=== PATIENT | male | born 1945 | race Caucasian/White ===

== ENCOUNTER 2019-09-13 09:21 | Inpatient (IN) ==
--- NOTE | 2019-09-13 09:38 | PROVIDER DOCUMENTATION ---
HPI-Neurological Disorder - General Stated Complaint: SYNCOPE Time Seen by Provider: 09/13/19 09:24 Source: EMS, other (sitter from [facility]) Unable to obtain history due to:: altered Allergies/Adverse Reactions: Patient Allergies Allergy/AdvReac Type Severity Reaction Status Date / Time Phenothiazines Allergy Unknown Verified 09/13/19 09:50 Home Medications: Home Medication List Medication Instructions Recorded Confirmed Last Taken Type Alendronate [Fosamax] 1 tab PO DAILY 09/13/19 09/13/19 09/13/19 History Amlodipine [Norvasc] 1 tab PO DAILY 09/13/19 09/13/19 09/13/19 History Aspirin [Aspir-Low] 1 tab PO DAILY 09/13/19 09/13/19 09/13/19 History Calcium Carbonate/Vitamin D3 1 cap PO DAILY 09/13/19 09/13/19 09/13/19 History [Calcium 600-Vit D3 500 Softgel] Docusate Sodium [Colace] 2 cap PO DAILY 09/13/19 09/13/19 09/13/19 History Escitalopram Oxalate [Lexapro] 1 tab PO DAILY 09/13/19 09/13/19 09/13/19 History Isosorbide Mononitrate [Isosorbide 1 tab PO DAILY 09/13/19 09/13/19 09/13/19 History Mononitrate ER] Lactulose [Generlac] 1 dose PO BID 09/13/19 09/13/19 09/13/19 History Losartan Potassium 1 tab PO DAILY 09/13/19 09/13/19 09/13/19 History Omeprazole [Prilosec] 1 cap PO BID 09/13/19 09/13/19 09/13/19 History Propranolol [Inderal] 10 mg PO DAILY 09/13/19 09/13/19 09/13/19 History Quetiapine [Seroquel] 0.5 tab PO QHS 09/13/19 09/13/19 09/12/19 History SIMVAstatin [Zocor] 1 tab PO QHS 09/13/19 09/13/19 09/12/19 History Tamsulosin [Flomax] 1 tab PO DAILY 09/13/19 09/13/19 09/13/19 History Trazodone [Desyrel] 1 tab PO QHS 09/13/19 09/13/19 09/12/19 History Zolpidem [Ambien] 0.5 tab PO Q 09/13/19 09/13/19 09/12/19 History - History of Present Illness-Neuro Nature of Presenting Problem: pt is nonverbal, from [facility]. Was using toilet as a seat, was getting a haircut, when eyes rolled back, fell forward. Hit head twice. She says he has n ever dfone this before. He did have a fever last night, was given tylenol, fever has not returned. No cough, no N/V/change BM. BAck to NL self by EMS arrival Onset/Duration: reports: abrupt Timing: reports: gone now Review of Systems - Adult - REVIEW OF SYSTEMS - ADULT Constitutional: reports: see HPI Eyes: reports: no symptoms reported Ears, Nose, Mouth & Throat: reports: no symptoms reported Cardiovascular: reports: no symptoms reported Respiratory: reports: no symptoms reported Gastrointestinal: reports: no symptoms reported Genitourinary: reports: no symptoms reported Musculoskeletal: reports: no symptoms reported Integumentary: reports: no symptoms reported Neurological: reports: see HPI Psychiatric: reports: no symptoms reported Endocrine: reports: no symptoms reported Hematologic/Lymphatic: reports: no symptoms reported Allergic/Immunologic: reports: no symptoms reported Past History - Adult - PAST MEDICAL HISTORY-ADULT Review of Records: reports: Medications Reviewed Physical Exam- Neurological - Physical Exam-Neuro Initial Vital Signs Reviewed: Yes General Appearance: appears well, other (awake, looking around. Obeys commands, non verbal) Eye Exam: bilateral eye: normal inspection, PERRL, EOMI HENMT: normocephalic/atraumatic, moist mucous membranes, normal ENT inspection Head Injury: other (4 cm que hematoma to R occiput) Neck: full range of motion, supple, normal inspection Respiratory: lungs clear, normal breath sounds, no pleuratic chest pain, no respiratory distress, no accessory muscle use Cardiovascular: regular rate, rhythm, no edema, no gallop Abdominal Exam: non tender, soft Peripheral Pulses: radial (R): 2+ Extremity: non-tender, normal inspection, no pedal edema trench pipe layer Exam: PERRL, other Motor/Sensory: no motor deficit Neurologic: trench pipe layer II-XII nml as tested, grossly normal Psych/Mental Status: normal mood/affect (for his baseline) - Gl[place]ow Coma Scale Best Eye Response: (4) open spontaneously Progress - PLAN OF CARE/RESULTS Progress/Plan/Lab Results: Vital Signs - 8 hr 09/13/19 09:33 09/13/19 12:09 Temperature 98.4 F Pulse Rate 80 Pulse Rate [Sitting] 65 Pulse Rate [Standing] 67 Pulse Rate [Supine] 62 Respiratory Rate 16 Blood Pressure 88/59 Blood Pressure [Sitting] 97/67 Blood Pressure [Standing] 94/62 Blood Pressure [Supine] 98/71 O2 Sat by Pulse Oximetry 93 L 09/13/19 10:21 Influenza Screen - Final Nasopharyngeal Laboratory Results - last 24 hr 09/13/19 09/13/19 09/13/19 09:47 10:21 10:21 WBC 7.49 RBC 4.71 Hgb 14.0 Hct 42.7 MCV 90.7 MCH 29.7 MCHC 32.8 L RDW Std Deviation 15.4 H Plt Count 133 MPV 9.3 Immature Gran % (Auto) 0.3 Neut % (Auto) 65.4 Lymph % (Auto) 15.9 L [place] % (Auto) 15.5 H Eos % (Auto) 2.5 Baso % (Auto) 0.4 Immature Gran # (Auto) 0.02 Neut # (Auto) 4.90 Lymph # (Auto) 1.19 L [place] # (Auto) 1.16 H Eos # (Auto) 0.19 Baso # (Auto) 0.03 D-Dimer, Quantitative Sodium 143 Potassium 3.9 Chloride 108 H Carbon Dioxide 22 L Anion Gap 13 BUN 19 Creatinine 1.4 H Estimated GFR/1.73 m2 45 BUN/Creatinine Ratio 14 Glucose 128 H POC Glucose 146 H Calculated Osmolality 289 Calcium 8.6 L Total Bilirubin 0.73 AST 22 ALT 20 Alkaline Phosphatase 70 Troponin T High Sens Total Protein 6.3 Albumin 3.6 Globulin 2.7 Albumin/Globulin Ratio 1.3 09/13/19 09/13/19 10:21 10:21 WBC RBC Hgb Hct MCV MCH MCHC RDW Std Deviation Plt Count MPV Immature Gran % (Auto) Neut % (Auto) Lymph % (Auto) [place] % (Auto) Eos % (Auto) Baso % (Auto) Immature Gran # (Auto) Neut # (Auto) Lymph # (Auto) [place] # (Auto) Eos # (Auto) Baso # (Auto) D-Dimer, Quantitative 0.58 H Sodium Potassium Chloride Carbon Dioxide Anion Gap BUN Creatinine Estimated GFR/1.73 m2 BUN/Creatinine Ratio Glucose POC Glucose Calculated Osmolality Calcium Total Bilirubin AST ALT Alkaline Phosphatase Troponin T High Sens 12 Total Protein Albumin Globulin Albumin/Globulin Ratio Orders Category Date Time Status ED: Orthostatic Vital Signs (E DIRECTED Care 09/13/19 11:45 Active Nursing- Obtain EKG ONCE Care 09/13/19 09:30 Active CHEST-1 VIEW [RAD] Stat Exams 09/13/19 09:[address] HEAD W/O CONTRAST [CT] Stat Exams 09/13/19 09:30 Completed CBC WITH DIFF [HEME] Stat Lab 09/13/19 10:21 Completed COMPREHENSIVE METABOLIC PANEL [CHEM] Stat Lab 09/13/19 10:21 Completed D-DIMER [COAG] Stat Lab 09/13/19 10:21 Completed Flu Swab [INFLUENZA SCREEN A/B] Stat Lab 09/13/19 10:21 Completed TROPONIN T HIGH SENSITIVITY Stat Lab 09/13/19 10:21 Completed EKG [EKG] Stat Ther 09/13/19 09:30 Draft He was born in 1946, so @ 74, his D-Dimer is withing normal range, since sats, HR are NL Result Diagrams: 09/13/19 10:21 09/13/19 10:21 - EKG 1 Time of EKG reading by physician:: 10:02 EKG Read and Signed by:: Bubba Santoyo EKG Interpretation (*Must complete 3 of following elements*): Abnormal Rate: 64 Rhythm: NSR QRS: Q Waves present (infer leads) ST Wave: non-specific ST changes (ant leads) Departure - Departure Date of Disposition Decision: 09/13/19 Time of Disposition Decision: 13:45 DIAGNOSIS: Syncope and collapse, Influenza A Disposition: HOME 01 Certified Medical Emergency: Emergent Condition: Good Additional Instructions: ED Follow Up Instructions: You have been treated by a care provider in the Emergency Department. These instructions are being provided to you so you can have an understanding of how to care for yourself upon discharge. Upon discharge from the Emergency Department, you are responsible for making arrangements for follow-up care by a physician of your choice. Take all prescribed medications as directed. Return to the Emergency Department immediately for any new or worsening symptoms. You may call the Physician Referral phone number at [phone] to obtain a list of Physicians who are taking new patients. Discharge Education: Syncope, [id number] - Critical Care Note This patient required my direct & personal management of CC.: Yes Attestation - Physician/ SANCHO Attestation Patient care was provided by Advanced Practice Provider:: No The physician spent face to face time with patient:: Yes Advanced Practice Provider documentation review:: Supervising physician onsite and consulted in the evaluation and care of this patient. The physician did have a face to face encounter with the patient.
--- NOTE | 2019-09-13 10:25 | Diag Imaging Result Doc PS360 ---
EXAM: CT HEAD W/O CONTRAST HISTORY: syncope, hit head TECHNIQUE: CT head with out intravenous contrast COMPARISON: None. FINDINGS: No parenchymal hemorrhage. No epidural or subdural hematoma. No subarachnoid hemorrhage. No mass identified on this noncontrasted exam. No hydrocephalus. No skull fracture. IMPRESSION: No hemorrhage. No injury. This exam was performed using automated exposure control, adjustment of mA or kV according to patient size, and/or use of iterative reconstruction technique. Electronically signed by Pedro Gonzales 09/13/2019 10:22 AM
[2019-09-13 10:32] LABS: BASO# 0.03 X1000 (0.0-0.2); BASO% 0.4 % (0.0-0.8); EOS# 0.19 X1000 (0.0-0.7); EOS% 2.5 % (0.0-10.0); HEMATOCRIT 42.7 % (42.0-52.0); IMM GRAN# 0.02 X1000 (0.0-0.04); IMM GRAN% 0.3 % (0.0-0.5); LYMPH# 1.19 X1000 (1.2-3.4); LYMPH% 15.9 % (20.5-51.1); MCH 29.7 PG (27-31); MCHC 32.8 g/dL (33-37); MCV 90.7 FL (81-99); MONO# 1.16 X1000 (0.11-0.59); MONO% 15.5 % (1.7-9.3); MPV 9.3 FL (7.4-10.4); NEUT% 65.4 % (42.2-75.2); PLT 133 X1000 (130-400); RBC 4.71 XMIL (4.7-6.1); RDW 15.4 % (11.5-14.5); WBC 7.49 X1000 (4.8-10.8)
--- NOTE | 2019-09-13 10:32 | Diag Imaging Result Doc PS360 ---
EXAM: CHEST-1 VIEW HISTORY: syncope TECHNIQUE: Single view COMPARISON: None. FINDINGS: Poor inspiratory effort. The heart is borderline mildly prominent. There is a small left pleural effusion. Mild increased interstitial markings in the left base. The right hemidiaphragm is elevated. IMPRESSION: Small left pleural effusion with basilar atelectasis versus a small infiltrate Electronically signed by Pedro Gonzales 09/13/2019 10:30 AM
[2019-09-13 11:13] LABS: ALB/GLOB RATIO 1.3; ALBUMIN 3.6 g/dL (3.5-5.0); CALCIUM 8.6 mg/dL (8.8-10.2); CREATININE 1.4 mg/dL (0.7-1.2); POTASSIUM 3.9 mmol/L (3.5-5.1); TOTAL BILIRUBIN 0.73 mg/dL (0.20-1.00); TOTAL PROTEIN 6.3 g/dL (6.3-8.3)
--- NOTE | 2019-09-13 13:26 | EKG Report ---
Test Performed on : 09/13/2019 09:54:24 AM Test Reason : SYNCOPE Blood Pressure : / mmHG Vent. Rate : 064 BPM Atrial Rate : 064 BPM P-R Int : 188 ms QRS Dur : 100 ms QT Int : 406 ms P-R-T Axes : 045 -12 059 degrees QTc Int : 418 ms Normal sinus rhythm. Inferior infarct , age undetermined ST & T wave abnormality, consider anterior ischemia Abnormal ECG No previous ECGs available Unconfirmed Result
[2019-09-13] MEDS ORDERED: DUONEB (A & A) INH ONE (14:04)
[2019-09-13] MEDS ORDERED: TAMIFLU PO ONE (17:06)
--- NOTE | 2019-09-13 17:49 | Diag Imaging Result Doc PS360 ---
EXAM: CT ANGIOGRM PULMONARY ARTERIES HISTORY: low sats, elev dimer TECHNIQUE: CT chest with intravenous contrast. Pulmonary arterial protocol with MIP images. COMPARISON: None. FINDINGS: No aortic aneurysm or dissection. Normal opacification of the pulmonary arteries and their major branches. No enlarged mediastinal or hilar lymph nodes. There is mild vascular distention. The right hemidiaphragm is elevated. Minimal basilar atelectasis. IMPRESSION: 1.No pulmonary emboli 2.Mild vascular distention This exam was performed using automated exposure control, adjustment of mA or kV according to patient size, and/or use of iterative reconstruction technique. Electronically signed by Pedro Gonzales 09/13/2019 5:46 PM
[2019-09-13] MEDS ORDERED: ZOFRAN IV PRN (19:23)
[2019-09-13] MEDS ORDERED: NS 1,000 ML IV SCH (19:23)
[2019-09-13] MEDS ORDERED: TYLENOL PO PRN (19:23)
[2019-09-13] MEDS: DESYREL PO SCH (21:16)
[2019-09-13] MEDS: AMBIEN PO SCH (21:16)
[2019-09-13] MEDS: LACTULOSE PO SCH (21:17)
[2019-09-13] MEDS: SEROQUEL PO SCH (21:17)
[2019-09-13] MEDS: PRILOSEC PO SCH (21:17)
--- NOTE | 2019-09-14 01:19 | HISTORY AND PHYSICAL ---
ADDENDUM: Today Mr. Mccarthy was brought in from [facility] at [facility] where he has been living for some time. The caregiver was at the bedside, during the interview the boss of the snf also came to the room. I understand Mr. Mccarthy had a fever of about 101.6 last night, he was given Tylenol, which subsided. This morning he was doing okay. The caregiver was cutting his hair when he kind of rolled his eyes back and then slumped forward and was not responding well, so he was brought into the emergency room where he was evaluated. Initially he was slightly hypotensive with a blood pressure of 88/59, pulse of 98.4, respiration was 15, temperature was 98.4 degrees. The patient was saturating at 93%. He seems to have been mildly orthostatic. A CTA of the lungs was done which did not show any PE. The patient was nebulized and Hospitalist Services was called. PHYSICAL EXAMINATION: VITAL SIGNS: Blood pressure is 135/82, pulse of 68, respirations 19, temperature is 98.4 degrees. GENERAL: Mr. Mccarthy is a gentleman. He is in bed. He was actually eating some yogurt at the time of the encounter. He is nonverbal. HEENT: Mucosa was pink and moist. Anicteric. Acyanotic. NECK: Supple. CHEST: Clear to auscultation. CARDIOVASCULAR: Regular rate and rhythm. ABDOMEN: Soft. EXTREMITIES: No pedal edema. LABORATORY DATA: Has been reviewed. CBC is unremarkable. Chemistry shows a creatinine of 1.4. We do not have a baseline to compare. IMAGING STUDIES: A chest x-ray shows small left pleural effusion with bibasilar atelectasis versus small infiltrates. CT scan of the head was unremarkable. A CTA of the lungs showed no pulmonary emboli, minimal basilar atelectasis, the right hemidiaphragm is elevated. ASSESSMENT: 1. Syncopal episode presumably from orthostatic hypotension. 2. Influenza A positive. 3. Acute kidney injury. 4. Cognitive decline with total care in a snf. PLAN: For now Mr. Mccarthy will be admitted to the medical floor. Gentle hydration overnight. Continue with the Tamiflu and re-evaluate him in the morning. We will also check his orthostatic vitals in the morning. cc: Dar Brenner MD [facility]
--- NOTE | 2019-09-14 04:36 | HISTORY AND PHYSICAL ---
Date of is not documented well in the chart. PRESENTING COMPLAINT: Fever and blacking out. HISTORY OF PRESENT COMPLAINT: Mr. Mccarthy is a gentleman with severe intellectual impairment, who is a resident of [facility] , was brought into the emergency room today after he blacked out. Apparently Mr. Mccarthy was getting a haircut and the caregiver refers that he looked quite ill, went blank and then just slammed the head forward, and then immediately called EMS and was brought into the emergency room. I understand Mr. Mccarthy had a temperature of 101.6 degrees last night and was given Tylenol, and it is also referred that multiple of his colleagues that he [place] with at the park had respiratory infections, flu and Strep. Upon presenting to the emergency department, Mr. Mccarthy was evaluated. He was found to be hypoxemic with O2 saturation of 93%, and also hypotensive with a blood pressure of 88/59. PAST MEDICAL HISTORY: 1. Intellectual impairment. 2. Hypertension. 3. BPH. PAST SURGICAL HISTORY: None. ALLERGIES: Phenothiazines. SOCIAL HISTORY: The patient is a resident of [facility]. No smoking and no recreational drugs. REVIEW OF SYSTEM: Mr. Mccarthy himself is nonverbal. According to the caregiver, the patient did not have any other symptom, except what we have in the HPI. PHYSICAL EXAMINATION: CURRENT VITALS: Blood pressure is 135/82, pulse of 69, respiration is 19, temperature is 97.6. GENERAL EXAM: Mr. Mccarthy is a gentleman. He is in bed. He does not seems to be in any cardiopulmonary distress. HEENT: Head was normocephalic and atraumatic. Mucosa is pink and moist. Anicteric. Acyanotic. NECK: Supple. CHEST: Clear to auscultation. There were no crepitations, no rhonchi. CARDIOVASCULAR: Regular rate and rhythm. No murmurs, no rubs, no gallops. [place] beat was at fifth intercostal space, midclavicular line. GI/ABDOMEN: Soft, distended, but nontender. Bowel sounds were present. There was no hepatosplenomegaly. EXTREMITIES: No pedal edema. Distal pulses were present. [employer]: Patient is awake, alert, nonverbal, but will move extremities upon stimulation. LABORATORY DATA: Has been reviewed. WBC is 7.49, hemoglobin is 14.0, platelet count of 1330. Chemistry is also reviewed. Sodium is 143, potassium is 3.9, chloride is 108, bicarbonate is 22. Creatinine is 1.4. We do not have any previous one to compare. Glucose is 128. IMAGING STUDIES: 1. A chest x-ray shows small left pleural effusion versus small infiltrates. 2. A head CT scan shows no hemorrhage and no injury. 3. A CTA of the lungs showed no emboli, mild vascular distention. ASSESSMENT: Mr. Mccarthy, who is intellectually impaired, alert, lives at a correction, whose other colleagues have flu and Strep, comes in with a history of high fever and blacking out was found to be hypoxemic and hypotensive on admission. ASSESSMENT: 1. Acute hypoxemic respiratory failure. 2. Influenza A positive. 3. Hypotension presumably from volume depletion. The patient is also on multiple antihypertensive medication that could have confounded the clinical picture. 4. Intellectual impairment. 5. Renal failure, presumably acute. Please refer to the details of the other history and physical that I dictated early on. cc: Dar Brenner MD [facility]
[2019-09-14 05:25] LABS: BASO# 0.03 X1000 (0.0-0.2); BASO% 0.5 % (0.0-0.8); EOS# 0.39 X1000 (0.0-0.7); EOS% 6.5 % (0.0-10.0); HEMOGLOBIN 13.3 g/dL (14.0-18.0); LYMPH# 1.41 X1000 (1.2-3.4); LYMPH% 23.5 % (20.5-51.1); MCH 29.4 PG (27-31); MCHC 32.4 g/dL (33-37); MCV 90.5 FL (81-99); MONO# 1.02 X1000 (0.11-0.59); MPV 9.5 FL (7.4-10.4); NEUT# 3.15 X1000 (1.4-6.5); NEUT% 52.5 % (42.2-75.2); PLT 118 X1000 (130-400); RBC 4.53 XMIL (4.7-6.1)
[2019-09-14 05:54] LABS: AGAP 10; ALBUMIN 2.9 g/dL (3.5-5.0); ALKALINE PHOSPHATASE 60 U/L (32-122); BUN 15 mg/dL (8-22); CALCIUM 7.6 mg/dL (8.8-10.2); CHLORIDE 107 mmol/L (98-107); CK PROFILE 94 U/L (24-204); COSMO 280; CREATININE 1.1 mg/dL (0.7-1.2); GLUCOSE 100 mg/dL (70-104); GOT 18 U/L (10-34); GPT 17 U/L (10-44); MAGNESIUM 1.9 mg/dL (1.5-2.7); POTASSIUM 3.3 mmol/L (3.5-5.1); SODIUM 140 mmol/L (136-145); TCO2 23 mmol/L (25-35); TOTAL BILIRUBIN 0.36 mg/dL (0.20-1.00); TOTAL PROTEIN 5.8 g/dL (6.3-8.3)
--- NOTE | 2019-09-14 07:10 | EKG Report ---
Test Performed on : 09/14/2019 06:37:52 AM Test Reason : chest pain Blood Pressure : / mmHG Vent. Rate : 067 BPM Atrial Rate : 067 BPM P-R Int : 186 ms QRS Dur : 114 ms QT Int : 454 ms P-R-T Axes : 076 -34 078 degrees QTc Int : 479 ms Normal sinus rhythm. Left axis deviation Nonspecific T wave abnormality Prolonged QT Abnormal ECG Confirmed by Sinan HAIRSTON, Usama Brownlee ([id number]) on 09/15/2019 6:14:26 PM
--- NOTE | 2019-09-14 07:35 | Diag Imaging Result Doc PS360 ---
EXAM: CHEST-PORTABLE 09/14/2019 HISTORY: flu/suncope follow up TECHNIQUE: AP portable at 0631 COMMENT: Compared to 09/13/2019 there is more pleural fluid on the left. There may be mild interstitial pulmonary edema. There is apparent atelectasis in the left lower lobe and lingula. IMPRESSION: Worsened left pleural effusion. Pulmonary edema. Electronically signed by Fernie Hoang 09/14/2019 7:33 AM
[2019-09-14] MEDS ORDERED: LASIX IV ONE (08:43)
[2019-09-14] MEDS ORDERED: ZYVOX 600 MG/D5W 600 MG/300 ML IVPB IV SCH (08:45)
[2019-09-14] MEDS: LEXAPRO PO SCH (10:07)
[2019-09-14] MEDS: PRILOSEC PO SCH ×2 (10:07→20:25)
[2019-09-14] MEDS: LACTULOSE PO SCH ×2 (10:07→20:25)
[2019-09-14] MEDS: ASPIRIN EC PO SCH (10:07)
[2019-09-14] MEDS: TAMIFLU PO SCH ×2 (10:07→20:25)
[2019-09-14] MEDS: COLACE PO SCH (10:08)
[2019-09-14] MEDS: IMDUR PO SCH (10:08)
[2019-09-14] MEDS: MAXIPIME 1 GM in NS 50 ML IV SCH ×3 (10:25→23:52)
--- NOTE | 2019-09-14 13:43 | ECHO REPORT ---
ORDER DATE: 09/14/2019 MEASUREMENTS: 1. Septal thickness 1.2. 2. Left ventricular internal diameter end-diastole 5.1. 3. Posterior wall thickness 1.2. 4. Left ventricular internal diameter systole 3.1. 5. Aortic root 3.5. 6. Left atrium 4.3. SUMMARY: 1. Technically difficult study due to limited acoustic window quality. 2. Aortic valve is trileaflet and opens normally on 2-dimensional images. Peak gradient across the aortic valve is less than 10 mmHg. Mitral and tricuspid valves are without gross structural abnormality while pulmonic valve is not well demonstrated. There is trace tricuspid regurgitation. The aortic root is normal in size. 3. Normal left ventricular chamber size with mild concentric left hypertrophy is suggested. Estimated left ejection fraction appears to be at least 65%. No obvious regional wall abnormality can be appreciated. Doppler suggests grade 1 left ventricular diastolic dysfunction. Left atrium is borderline enlarged. Right atrium and right ventricle are grossly normal size with grossly preserved right ventricular systolic function. 4. No pericardial effusion. 5. Appearance of inferior vena cava suggests normal central venous pressure. CONCLUSIONS: 1. Technically difficult study. 2. No significant valvular abnormality evident. 3. Mild concentric left hypertrophy with estimated ejection fraction at least 65%. 4. Grade 1 left ventricular diastolic dysfunction suggested. 5. Borderline left atrial enlargement. cc: Jorge Rodriguez MD
--- NOTE | 2019-09-14 16:07 | PROGRESS NOTE ---
DATE: 09/14/2019 SUBJECTIVE: This morning Mr. Mccarthy is referred to be doing okay. There was nobody at the bedside. However, the nurses told me that he was able to sit up and eat his breakfast. OBJECTIVE: Vital Signs: Blood pressure is 131/89, pulse of 86, respirations 20, temperature 98.3 degrees. The patient is saturating 97% on room air. General: Mr. Mccarthy is a 73-year-old gentleman. He is in bed, no distress. Mucosa is pink and moist. Anicteric. Acyanotic. Neck: Supple. Chest: Air entry is bilaterally reduced. There are a few crackles in the posterior lung field. Cardiovascular: Regular rate and rhythm. No murmurs, no rubs, no gallops. Abdomen: Soft, nontender. Bowel sounds present. Extremities: No pedal edema. Central Nervous System: Patient is awake, alert. He is nonverbal but moves all extremities. LABORATORY DATA: WBC is 6, hemoglobin is 13.3, platelet count of 118,000. Chemistry is also reviewed, potassium is 3.3. Creatinine has normalized to 1.1. DIAGNOSTIC STUDIES: A chest x-ray this morning seems to suggest worsening left pleural effusion and pulmonary edema. An echocardiogram showed an ejection fraction of 65% with mild concentric left hypertrophy. ASSESSMENT AND PLAN: 1. Acute hypoxemic respiratory failure, improved. 2. Influenza A positive with suspected viral superimposed on bacteria multifocal pneumonia. The patient has been started on antimicrobial coverage. 3. Hypotension on admission. Presumably from volume depletion with possible sepsis. The patient's antihypertensive medications have been withheld. Blood pressures have been normalized. 4. Acute renal failure, improved with hydration. 5. Pulmonary edema with pleural effusion, most likely from over hydration. Intravenous fluid has been discontinued. The patient got a dose of Lasix this morning. We will repeat a chest x- ray tomorrow morning and then go from there. 6. Intellectual disability, noted. The [facility] is a [facility] a [facility]. SUMMARY: So, in general, I think Mr. Mccarthy is clinically stable. He is nonverbal. He has intellectual impairment. He is a resident of a [facility]. His flu is positive and he is on Tamiflu. We are also concerned if there is an underlying bacterial pneumonia, so he is on antimicrobial coverage as well. We will repeat his chest x-ray tomorrow morning and reevaluate him and see if he can potentially be discharged. cc: Dar Brenner MD [facility]
[2019-09-14] MEDS: DOXYCYCLINE 100 MG in NS 250 ML IV SCH (17:53)
[2019-09-14] MEDS: SEROQUEL PO SCH (20:24)
[2019-09-14] MEDS: AMBIEN PO SCH (20:24)
[2019-09-14] MEDS: DESYREL PO SCH (20:25)
[2019-09-15] MEDS: DOXYCYCLINE 100 MG in NS 250 ML IV SCH ×2 (03:38→16:34)
[2019-09-15 05:34] LABS: HEMATOCRIT 40.9 % (42.0-52.0); HEMOGLOBIN 13.5 g/dL (14.0-18.0); MCH 29.7 PG (27-31); MCV 89.9 FL (81-99); MPV 9.8 FL (7.4-10.4); RBC 4.55 XMIL (4.7-6.1); RDW 14.9 % (11.5-14.5); WBC 6.09 X1000 (4.8-10.8)
[2019-09-15 05:47] LABS: AGAP 10; ALBUMIN 3.2 g/dL (3.5-5.0); BUN 12 mg/dL (8-22); CALCIUM 7.7 mg/dL (8.8-10.2); CHLORIDE 103 mmol/L (98-107); COSMO 281; CREATININE 0.9 mg/dL (0.7-1.2); ESTIMATED GFR > 60; GLUCOSE 102 mg/dL (70-104); PHOSPHORUS 2.1 mg/dL (2.7-4.5); SODIUM 141 mmol/L (136-145); TCO2 28 mmol/L (25-35)
--- NOTE | 2019-09-15 07:24 | Diag Imaging Result Doc PS360 ---
CHEST-PORTABLE - 09/15/2019 INDICATION: dyspnea COMPARISON: 09/14/2019 FINDINGS: Lung volumes are critically low similar to prior. Stable right hemidiaphragm elevation. There is a small to moderate left pleural effusion. No new consolidations. Heart size remains stable. IMPRESSION: No significant change from prior. Electronically signed by Aldair Hills 09/15/2019 7:22 AM
[2019-09-15] MEDS: MAXIPIME 1 GM in NS 50 ML IV SCH ×2 (09:26→15:56)
[2019-09-15] MEDS: ASPIRIN EC PO SCH (09:27)
[2019-09-15] MEDS: COLACE PO SCH (09:27)
[2019-09-15] MEDS: TAMIFLU PO SCH ×2 (09:27→20:47)
[2019-09-15] MEDS: LEXAPRO PO SCH (09:28)
[2019-09-15] MEDS: LACTULOSE PO SCH ×2 (09:28→20:48)
[2019-09-15] MEDS: PRILOSEC PO SCH ×2 (09:28→20:47)
[2019-09-15] MEDS: IMDUR PO SCH (09:28)
[2019-09-15] MEDS ORDERED: POTASSIUM CHLORIDE 60 MEQ in NS 500 ML IV ONE (14:24)
[2019-09-15] MEDS ORDERED: SODIUM PHOSPHATE 35 MMOL in NS 250 ML IV ONE (14:25)
--- NOTE | 2019-09-15 14:50 | PROGRESS NOTE ---
DATE: 09/15/2019 SUBJECTIVE: The patient reports feeling okay. He was nonverbal actually completely to me. No acute issues noted as per nursing staff overnight. OBJECTIVE: Vital Signs: Temperature 97.5 degrees, heart rate 71, respiratory rate 19, blood pressure 131/73, O2 saturation 94% on room air. General: This is a 73-year-old male with history of intellectual impairment, lying in bed, in no acute distress. Cardiovascular: S1, S2 heard. No murmurs, gallops, or rubs. Regular rate and rhythm. Respiratory: Clear bilaterally to auscultation. No work of breathing or using accessory muscles. Abdomen: Soft, nontender to palpation. Bowel sounds present. No organomegaly. Extremities: No clubbing, cyanosis, or edema. Peripheral pulses present in both legs. Neurological: Patient is awake but nonverbal to me. Moves 4 extremities spontaneously. LABORATORY DATA: CBC indicates a white cell count 6.09 with hemoglobin 13.5, hematocrit 40.9, platelets 125,000, with potassium 3.0. ASSESSMENT AND PLAN: 1. Acute hypoxemic respiratory failure. Clinically, this patient is fine. Oxygen needs are 0, he is not requiring any oxygen. We will continue to monitor. 2. Influenza A with suspected superimposed bacterial infection. The CT angiogram of the chest did not show any pneumonia. The patient is on Tamiflu for influenza but he has been started her or antibiotics, in this case doxycycline and cefepime. We will continue with those. He is not spiking any fever and white cell count is normal, but while he is here, we will continue to provide those medications. 3. Hypotension on admission, resolved. 4. Acute kidney injury, resolved. 5. Pulmonary edema with pleural effusion. Patient has been given Lasix yesterday. The x-ray shows still left pleural effusion. I think at this point we will start this patient on Lasix 40 mg IV daily. We will continue to monitor. 6. Intellectual disability. Noted. 7. Disposition. We will continue to monitor this patient closely. Will most likely complete 5 days of Tamiflu and then we will discharge this patient. cc: Isaiah Booker MD
[2019-09-15] MEDS: LASIX IV SCH (14:59)
[2019-09-15] MEDS: AMBIEN PO SCH (20:47)
[2019-09-15] MEDS: DESYREL PO SCH (20:47)
[2019-09-15] MEDS: SEROQUEL PO SCH (20:47)
[2019-09-16] MEDS: MAXIPIME 1 GM in NS 50 ML IV SCH ×3 (01:39→15:59)
[2019-09-16] MEDS: DOXYCYCLINE 100 MG in NS 250 ML IV SCH ×2 (04:56→16:03)
[2019-09-16] MEDS: LASIX IV SCH (08:32)
[2019-09-16] MEDS: LEXAPRO PO SCH (08:32)
[2019-09-16] MEDS: LACTULOSE PO SCH ×2 (08:32→22:06)
[2019-09-16] MEDS: ASPIRIN EC PO SCH (08:32)
[2019-09-16] MEDS: TAMIFLU PO SCH ×2 (08:32→22:07)
[2019-09-16] MEDS: PRILOSEC PO SCH ×2 (08:32→22:07)
[2019-09-16] MEDS: COLACE PO SCH (08:32)
[2019-09-16] MEDS: IMDUR PO SCH (08:32)
[2019-09-16 12:08] LABS: BASO# 0.05 X1000 (0.0-0.2); BASO% 0.9 % (0.0-0.8); EOS# 0.31 X1000 (0.0-0.7); EOS% 5.7 % (0.0-10.0); HEMATOCRIT 43.9 % (42.0-52.0); HEMOGLOBIN 14.4 g/dL (14.0-18.0); LYMPH# 1.46 X1000 (1.2-3.4); LYMPH% 26.7 % (20.5-51.1); MCH 29.1 PG (27-31); MCHC 32.8 g/dL (33-37); MCV 88.7 FL (81-99); MONO# 0.63 X1000 (0.11-0.59); MONO% 11.5 % (1.7-9.3); MPV 9.3 FL (7.4-10.4); NEUT# 3.01 X1000 (1.4-6.5); NEUT% 55.2 % (42.2-75.2); PLT 145 X1000 (130-400); RBC 4.95 XMIL (4.7-6.1); RDW 14.8 % (11.5-14.5); WBC 5.46 X1000 (4.8-10.8)
[2019-09-16 12:35] LABS: AGAP 12; ALBUMIN 3.6 g/dL (3.5-5.0); BUN 13 mg/dL (8-22); CALCIUM 7.6 mg/dL (8.8-10.2); CHLORIDE 108 mmol/L (98-107); COSMO 291; ESTIMATED GFR > 60; GLUCOSE 142 mg/dL (70-104); PHOSPHORUS 1.9 mg/dL (2.7-4.5); POTASSIUM 3.2 mmol/L (3.5-5.1); SODIUM 145 mmol/L (136-145); TCO2 25 mmol/L (25-35)
--- NOTE | 2019-09-16 15:13 | PROGRESS NOTE ---
DATE: 09/16/2019 SUBJECTIVE: As per nursing staff, the patient is feeling okay he is nonverbal no acute issues noted. OBJECTIVE: Vital Signs: Temperature 98.3 degrees, heart rate 77 respiratory 15 blood pressure 131/98 O2 saturation 92% on room air. General: This is a 73-year-old male with history of intellectual impairment lying in bed, in no acute distress. Cardiovascular: S1 and S2 heard. No murmurs, gallops, or rubs. Regular rate and rhythm. Respiratory: Clear bilaterally to auscultation. No work of breathing or using accessory muscles. Abdomen: Soft, nontender to palpation. Bowel sounds present. No organomegaly. Extremities: No clubbing, cyanosis, or edema. Peripheral pulses present in both legs. Neurological: Patient is awake, but nonverbal to me. Moves 4 extremities spontaneously. LABORATORY DATA: Reviewed. ASSESSMENT AND PLAN: 1. Acute hypoxemic respiratory failure. Resolved. 2. Influenza A with suspected superimposed bacterial infection. The patient continues to be on Tamiflu. He is going to finish this that treatment on gently 17 at 9 p.m. He has been placed on doxycycline and cefepime but the CT angiogram of the chest did not show any pneumonia. I think at this time, we will continue with antibiotics just while this patient is in the hospital but at discharge we will just provide Tamiflu. 3. Hypotension on admission, resolved. 4. Acute kidney injury, resolved. 5. Pulmonary edema/pleural effusion. Patient has according to the x-ray still left pleural effusion. At this point, we will continue Lasix while he is here. He may need to have a few more doses while he is on rehab. We will continue to monitor. 6. Intellectual disability noted. DISPOSITION: The patient is improving and a most likely he is going to be discharged tomorrow. cc: Isaiah Booker MD
[2019-09-16] MEDS: AMBIEN PO SCH (22:06)
[2019-09-16] MEDS: DESYREL PO SCH (22:06)
[2019-09-16] MEDS: SEROQUEL PO SCH (22:07)
[2019-09-17] MEDS: MAXIPIME 1 GM in NS 50 ML IV SCH ×2 (01:34→10:37)
[2019-09-17] MEDS: DOXYCYCLINE 100 MG in NS 250 ML IV SCH (04:44)
[2019-09-17 05:47] LABS: BASO# 0.03 X1000 (0.0-0.2); BASO% 0.5 % (0.0-0.8); EOS# 0.33 X1000 (0.0-0.7); EOS% 5.5 % (0.0-10.0); HEMATOCRIT 42.4 % (42.0-52.0); LYMPH# 1.48 X1000 (1.2-3.4); LYMPH% 24.6 % (20.5-51.1); MCH 29.8 PG (27-31); MCV 90.2 FL (81-99); MONO# 0.72 X1000 (0.11-0.59); MPV 9.3 FL (7.4-10.4); NEUT# 3.45 X1000 (1.4-6.5); NEUT% 57.4 % (42.2-75.2); PLT 136 X1000 (130-400); RDW 14.9 % (11.5-14.5); WBC 6.01 X1000 (4.8-10.8)
[2019-09-17 06:23] LABS: AGAP 11; ALBUMIN 3.3 g/dL (3.5-5.0); BUN 14 mg/dL (8-22); CALCIUM 7.9 mg/dL (8.8-10.2); CHLORIDE 108 mmol/L (98-107); COSMO 290; CREATININE 0.8 mg/dL (0.7-1.2); ESTIMATED GFR > 60; GLUCOSE 105 mg/dL (70-104); POTASSIUM 2.9 mmol/L (3.5-5.1); SODIUM 145 mmol/L (136-145); TCO2 26 mmol/L (25-35)
--- NOTE | 2019-09-17 06:49 | Diag Imaging Result Doc PS360 ---
CHEST-PORTABLE - 09/17/2019 INDICATION: left pleural effusion COMPARISON: 09/15/2019 FINDINGS: Lung volumes are critically low. Stable opacification throughout the left lung base consistent with some combination of infiltrate and/or effusion. The right lung is fairly clear. Heart size is grossly normal. IMPRESSION: No significant change from prior. Electronically signed by [place] 09/17/2019 6:46 AM
[2019-09-17] MEDS: ASPIRIN EC PO SCH (10:36)
[2019-09-17] MEDS: COLACE PO SCH (10:36)
[2019-09-17] MEDS: LEXAPRO PO SCH (10:36)
[2019-09-17] MEDS: IMDUR PO SCH (10:37)
[2019-09-17] MEDS: PRILOSEC PO SCH ×2 (10:37→20:08)
[2019-09-17] MEDS: LASIX IV SCH (10:37)
[2019-09-17] MEDS: LACTULOSE PO SCH ×2 (10:37→20:04)
[2019-09-17] MEDS: TAMIFLU PO SCH ×3 (10:38→20:06)
[2019-09-17] MEDS ORDERED: POTASSIUM CHLORIDE 60 MEQ in NS 500 ML IV ONE (14:27)
[2019-09-17] MEDS ORDERED: SODIUM PHOSPHATE 35 MMOL in NS 250 ML IV ONE (14:31)
[2019-09-17] MEDS: DESYREL PO SCH (20:03)
[2019-09-17] MEDS: SEROQUEL PO SCH (20:04)
[2019-09-17] MEDS: AMBIEN PO SCH (20:04)
[2019-09-17] MEDS: OMNICEF PO SCH (20:05)
[2019-09-17] MEDS: DOXYCYCLINE PO SCH (20:07)
[2019-09-18 05:38] LABS: BASO# 0.05 X1000 (0.0-0.2); BASO% 0.7 % (0.0-0.8); EOS# 0.35 X1000 (0.0-0.7); HEMATOCRIT 42.6 % (42.0-52.0); HEMOGLOBIN 14.1 g/dL (14.0-18.0); IMM GRAN# 0.02 X1000 (0.0-0.04); IMM GRAN% 0.3 % (0.0-0.5); LYMPH# 1.59 X1000 (1.2-3.4); LYMPH% 22.7 % (20.5-51.1); MCH 29.9 PG (27-31); MCHC 33.1 g/dL (33-37); MCV 90.4 FL (81-99); MONO# 0.88 X1000 (0.11-0.59); MONO% 12.6 % (1.7-9.3); MPV 9.5 FL (7.4-10.4); NEUT# 4.11 X1000 (1.4-6.5); NEUT% 58.7 % (42.2-75.2); PLT 158 X1000 (130-400); RBC 4.71 XMIL (4.7-6.1); RDW 14.9 % (11.5-14.5)
[2019-09-18 06:16] LABS: AGAP 10; ALBUMIN 3.3 g/dL (3.5-5.0); BUN 16 mg/dL (8-22); CHLORIDE 110 mmol/L (98-107); COSMO 292; CREATININE 0.9 mg/dL (0.7-1.2); ESTIMATED GFR > 60; GLUCOSE 108 mg/dL (70-104); PHOSPHORUS 2.1 mg/dL (2.7-4.5); POTASSIUM 3.3 mmol/L (3.5-5.1); SODIUM 146 mmol/L (136-145); TCO2 26 mmol/L (25-35)
--- NOTE | 2019-09-18 06:36 | Carotid Study ---
DATE: 09/14/2019 STUDY: Carotid duplex study. DATE: 09/14/2019. REFERRING PHYSICIAN: Jake READING PHYSICIAN: Dr. Carney. EXECUTIVE CHAIRMAN OF THE BOARD: Hilaria. INDICATIONS: Syncope. FINDINGS: The carotid artery systems were imaged bilaterally without any findings of significant plaque disease, turbulent flow, or elevated velocities. There was antegrade vertebral flow bilaterally. The percent stenosis is 0 to 39 percent on both sides. INTERPRETATION: Normal carotid imaging study. cc: Mejia Carney MD
[2019-09-18] MEDS ORDERED: SODIUM PHOSPHATE 35 MMOL in NS 250 ML IV ONE (08:40)
[2019-09-18] MEDS ORDERED: KLOR-CON PO ONE (08:40)
[2019-09-18] MEDS ORDERED: NEUTRA-PHOS PO ONE (08:41)
[2019-09-18 08:53] VITALS: BP 126/95
[2019-09-18] MEDS: COLACE PO SCH (09:58)
[2019-09-18] MEDS: LEXAPRO PO SCH (09:58)
[2019-09-18] MEDS: ASPIRIN EC PO SCH (09:58)
[2019-09-18] MEDS: LACTULOSE PO SCH (09:58)
[2019-09-18] MEDS: PRILOSEC PO SCH (09:59)
[2019-09-18] MEDS: TAMIFLU PO SCH (09:59)
[2019-09-18] MEDS: DOXYCYCLINE PO SCH (09:59)
[2019-09-18] MEDS: OMNICEF PO SCH (09:59)
[2019-09-18] MEDS: IMDUR PO SCH (09:59)
--- NOTE | 2019-09-18 15:02 | DISCHARGE SUMMARY ---
ADMISSION DATE: 09/13/2019 DISCHARGE DATE: 09/18/2019 PRIMARY CARE PHYSICIAN: Listed as none. ADMISSION DIAGNOSES: 1. Syncopal episode, presumed from orthostatic hypotension. 2. Influenza A positive. 3. Acute kidney injury. 4. Cognitive decline with total care in a shelter. DISCHARGE DIAGNOSES: 1. An acute hypoxemic respiratory failure resolved. 2. Influenza A with a suspected superimposed bacterial infection improved. 3. Hypotension on admission, resolved. 4. Acute kidney injury, resolved. 5. Pulmonary edema/pleural effusion, improved. 6. Intellectual disability noted. SUMMARY OF FINDINGS: This is a 73-year-old male who was brought in from the [facility] at [facility] where he had been living. Caregiver was at bedside. He had a fever of 101.6 on the night prior to arriving. He was given Tylenol in which the fever subsided. Caregiver was cutting his hair when he kind of rolled his eyes back and then slumped forward, was not responding well so he is brought to the emergency room for evaluation. He was initially slightly hypotensive with a blood pressure of 88/59, pulse of 80. He was saturating 93% on 2 L. He was found to be influenza A positive, so he was admitted to the medical floor, was placed on Tamiflu. Placed on hydration. We did do an echocardiogram on 09/14/2019 that showed an ejection fraction of 65%. Chest x-ray on 09/15/2019 showed no significant change from prior. No new consolidations. He has remained afebrile for greater than 24 hours. His white blood cell count is within normal limits. He did have a decrease in his potassium and has been supplemented and it is felt that he can safely be discharged back to the shelter today. DISCHARGE MEDICATIONS: Include aspirin 81 mg p.o. daily, Colace 100 mg 2 capsules p.o. daily, Lexapro 20 mg p.o. daily, isosorbide 30 mg p.o. daily, lactulose 15 mL p.o. b.i.d., omeprazole 20 mg p.o. b.i.d., Tamiflu 75 mg p.o. b.i.d. #4 with no refills, Seroquel 100 mg 1/2 tablet p.o. at bedtime, Desyrel 100 mg p.o. at bedtime, zolpidem 5 mg 1/2 tablet p.o. at bedtime, Fosamax 70 mg p.o. daily, amlodipine 5 mg p.o. daily, calcium with vitamin D3 1 p.o. daily, losartan 100 mg p.o. daily, propranolol 10 mg p.o. daily, simvastatin 40 mg p.o. at bedtime. FOLLOWUP: He will need to follow up with his primary care physician in the next 1 to 2 weeks and call their office for an appointment. He will return to the shelter. Dictated by IRA Zuleta for Isaiah Booker MD Addendum: Patient seen and examined by myself. Agree with IRA note. It reflects my assessment and plan. Patient is being discharged in stable condition. Will be taking care of by shelter. cc: IRA Zuleta MD [facility]
== END 2019-09-18 12:02 | disposition home or self-care (01) | DRG 193 ==
LOC: ED 09:21 → SUATTDRO 18:55 → EDBD 18:55 → EDIPHOLD 18:55 → 1N 20:47
PROVIDERS: ATTEND Internal Medicine